=== PATIENT | male | born 1985 | race Caucasian/White ===

== ENCOUNTER 2021-02-17 11:24 | Emergency (ER) | payer OTHER, BC ==
--- NOTE | 2021-02-17 11:52 | EDM.PDOC ---
ED HPI GENERAL MEDICAL PROBLEM - General Chief Complaint: Back Pain or Injury Stated Complaint: back pain Time Seen by Provider: 02/17/21 11:35 Source of Information: Reports: Patient History Limitations: Reports: No Limitations - History of Present Illness INITIAL COMMENTS - FREE TEXT/NARRATIVE: Patient comes into the emergency department with complaints of lower back pain. Patient states he was at work yesterday and was trying to reach over a piece of equipment and pull it out. He states that he felt a pinching sensation in his mid lower back region. He states he was able to continue with his activities of daily living and work yesterday however he states that the muscle area has become increasingly tense with spasms. He denies any range of motion or CMS concerns and is able to complete all activities of daily living currently. He also denies any issues with bowel or bladder release. Patient states that he has not taken any Tylenol or ibuprofen for pain and discomfort. He also states that he cannot take oral [id number] medications due to chronic liver disease but states that he has not needed anything for discomfort or pain. Onset: Sudden Location: Reports: Other Quality: Reports: Ache Severity: Mild Improves with: Reports: None Worsens with: Reports: None Context: Reports: Activity Associated Symptoms: Reports: No Other Symptoms Right Lower Back Pain Score (Numeric/FACES): 4 - Related Data Allergies Allergy/AdvReac Type Severity Reaction Status Date / Time No Known Allergies Allergy Verified 02/17/21 11:45 Home Meds: Home Meds Ferrous Sulfate [Iron] 325 mg PO DAILY 02/17/21 [History] ED ROS GENERAL - Review of Systems Review Of Systems: Comprehensive ROS is negative, except as noted in HPI. Constitutional: Reports: No Symptoms HEENT: Reports: No Symptoms Respiratory: Reports: No Symptoms Cardiovascular: Reports: No Symptoms Endocrine: Reports: No Symptoms GI/Abdominal: Reports: No Symptoms : Reports: No Symptoms Musculoskeletal: Reports: Muscle Pain Skin: Reports: No Symptoms Neurological: Reports: No Symptoms Psychiatric: Reports: No Symptoms Hematologic/Lymphatic: Reports: No Symptoms Immunologic: Reports: No Symptoms ED EXAM, GENERAL - Physical Exam Exam: See Below Exam Limited By: No Limitations General Appearance: Alert, WD/WN, No Apparent Distress Throat/Mouth: Normal Inspection, Normal Lips, No Airway Compromise Head: Atraumatic, Normocephalic Neck: Normal Inspection, Supple, Non-Tender, Full Range of Motion Respiratory/Chest: No Respiratory Distress, Lungs Clear, Normal Breath Sounds, Chest Non-Tender Cardiovascular: Normal Peripheral Pulses, Regular Rate, Rhythm, No Edema Back Exam: Normal Inspection, Full Range of Motion, Muscle Spasm (lower back ). No: CVA Tenderness (L), CVA Tenderness (R), Decreased Range of Motion, Paraspinal Tenderness, Vertebral Tenderness Extremities: Normal Inspection, Normal Range of Motion, Non-Tender, Normal Capillary Refill Neurological: Alert, Oriented, CN II-XII Intact, Normal Cognition, Normal Gait Psychiatric: Normal Affect, Normal Mood Skin Exam: Warm, Dry, Intact, Normal Color Course - Vital Signs Last Recorded V/S: Last Vital Signs Temp 37.0 C 02/17/21 11:32 Pulse 103 H 02/17/21 11:32 Resp 18 02/17/21 11:32 BP 163/74 H 02/17/21 11:32 Pulse Ox 98 02/17/21 11:32 Departure - Departure Time of Disposition: 11:52 Disposition: Home, Self-Care 01 Condition: Good Clinical Impression: Low back strain - Discharge Information *PRESCRIPTION DRUG MONITORING PROGRAM REVIEWED*: Not Applicable *COPY OF PRESCRIPTION DRUG MONITORING REPORT IN PATIENT REGINA: Not Applicable Instructions: Muscle Strain, [id number], Lumbosacral Strain Referrals: Garima Granger DO [Primary Care Provider] - Additional Instructions: 1. Rest 2. Diet as tolerated 3. Activity as tolerated 4. Elevated the injured area above the level of the heart to decrease swelling and discomfort. 5. Use ice 3-4 times a day at 20-minute intervals to help with any swelling and discomfort 6. Follow-up with your primary care provider symptoms continue or to progress 7. Follow with any questions or concerns 8. Discharge information has been provided regarding your injury Sepsis Event Note (ED) - Focused Exam Vital Signs: Vital Signs Temp Pulse Resp BP Pulse Ox 02/17/21 11:32 37.0 C 103 H 18 163/74 H 98 - Assessment/Plan Assessment:: 1. back pain 2. back strain Plan: 1. Offered Ice to be applied to the affected area 2. Medication offered to the patient- patient declined 3. Education regarding splinting, activity, [id number] medications, and follow-up care provided. 4. All questions and concerns addressed with the patient prior to discharge
== END 2021-02-17 11:59 | disposition home or self-care (01) ==
LOC: VM.ED 11:24
DX: S39.012A Strain of muscle, fascia and tendon of lower back, initial encounter (principal); X50.0XXA Overexertion from strenuous movement or load, initial encounter; Y92.89 Other specified places as the place of occurrence of the external cause; Y99.0 Civilian activity done for income or pay
CPT/HCPCS: 99283

== ENCOUNTER 2021-07-16 18:23 | Emergency (ER) | payer BC, OTHER ==
[2021-07-16] MEDS: oxyCODONE 5 MG Tab PO ONE (20:19)
== END 2021-07-16 20:20 | disposition home or self-care (01) ==
LOC: VM.ED 18:23
DX: S42.035A Nondisplaced fracture of lateral end of left clavicle, initial encounter for closed fracture (principal); W00.0XXA Fall on same level due to ice and snow, initial encounter
CPT/HCPCS: 73030; 99283; A9270

== ENCOUNTER 2021-12-21 07:10 | Day surgery (SDC) | payer BC ==
[~2021-12-21 07:10] MED LIST: Lactated Ringers 1,000 ML IV SCH
[2021-12-21] MEDS ORDERED: fentaNYL 100 MCG/2 ML SDV ONE (12:19)
[2021-12-21] MEDS ORDERED: Propofol 200 MG/20 ML SDV ONE ×2 (12:20→12:42)
== END 2021-12-21 13:50 | disposition home or self-care (01) ==
LOC: VM.SDS 07:10
PROVIDERS: ATTEND Surgery
DX: Z12.11 Encounter for screening for malignant neoplasm of colon (principal); I10 Essential (primary) hypertension; E11.9 Type 2 diabetes mellitus without complications; D50.9 Iron deficiency anemia, unspecified; E78.5 Hyperlipidemia, unspecified; E66.9 Obesity, unspecified; E88.01 Alpha-1-antitrypsin deficiency; K70.31 Alcoholic cirrhosis of liver with ascites; F10.10 Alcohol abuse, uncomplicated; K59.00 Constipation, unspecified; D72.829 Elevated white blood cell count, unspecified; K76.0 Fatty (change of) liver, not elsewhere classified; F41.9 Anxiety disorder, unspecified; F32.9 Major depressive disorder, single episode, unspecified; Z79.899 Other long term (current) drug therapy; Z68.34 Body mass index [BMI] 34.0-34.9, adult; Z79.51 Long term (current) use of inhaled steroids
CPT/HCPCS: 00812; J2704; J3010; J7120

== ENCOUNTER 2021-12-25 03:52 | Emergency (ER) | payer BC ==
[2021-12-25 04:58] LABS: CORONAVIRUS COVID-19 NAA NEGATIVE (NEGATIVE)
== END 2021-12-25 05:30 | disposition home or self-care (01) ==
LOC: VM.ED 03:52
DX: K74.60 Unspecified cirrhosis of liver (principal); D69.6 Thrombocytopenia, unspecified; E87.6 Hypokalemia; E78.00 Pure hypercholesterolemia, unspecified; I10 Essential (primary) hypertension; E66.9 Obesity, unspecified; Z68.29 Body mass index [BMI] 29.0-29.9, adult; Z20.822 Contact with and (suspected) exposure to COVID-19
CPT/HCPCS: 0240U; 36415; 80053; 81003; 85025; 86140; 99283

== ENCOUNTER 2022-08-28 09:18 | Emergency (ER) | payer BC ==
[2022-08-28] MEDS: Ondansetron 4 MG Tab.DIS PO ONE (10:04)
[2022-08-28] MEDS: HYDROmorphone 1 MG/ML Syringe SUBCUT ONE (10:10)
== END 2022-08-28 10:17 | disposition home or self-care (01) ==
LOC: VM.ED 09:18
DX: R10.9 Unspecified abdominal pain (principal); R11.0 Nausea; F41.9 Anxiety disorder, unspecified; I10 Essential (primary) hypertension; E66.9 Obesity, unspecified; Z68.27 Body mass index [BMI] 27.0-27.9, adult
CPT/HCPCS: 96372; 99283; A9270; J1170

== ENCOUNTER 2022-09-09 05:40 | Emergency (ER) | payer BC ==
[2022-09-09] MEDS ORDERED: Orphenadrine 60 MG/2 ML Inj IM ONE (06:08)
[2022-09-09 06:38] LABS: CHLORIDE,CL 94 mmol/L (98-107)
[2022-09-09 06:45] LABS: ANION GAP 12.5 mmol/L (5-15); ESTIMATED GFR 99 mL/min (>=60)
[2022-09-09 06:46] LABS: SODIUM,NA 126 mmol/L (136-145)
[2022-09-09] MEDS ORDERED: Sodium Chloride 0.9% 1,000 ML IV ONE (06:53)
== END 2022-09-09 08:03 | disposition home or self-care (01) ==
LOC: VM.ED 05:40
DX: M62.838 Other muscle spasm (principal); E87.1 Hypo-osmolality and hyponatremia; E78.00 Pure hypercholesterolemia, unspecified; I10 Essential (primary) hypertension; E66.9 Obesity, unspecified; Z68.27 Body mass index [BMI] 27.0-27.9, adult
CPT/HCPCS: 36415; 80053; 83735; 85025; 86140; 96360; 96372; 99283; J2360; J7030